=== PATIENT | female | born 1985 | race African-American/Black ===

== ENCOUNTER 2021-03-23 07:56 | Emergency (ER) | payer MEDICAID ==
[~2021-03-23] VITALS: Ht 152.4 cm; Wt 87.0 kg
[2021-03-23 08:59] LABS: BASOPHILS % 0.5 % (0.0-2.0); CHLORIDE 108 mEq/L (98-107); EOSINOPHILS % 0.5 % (0.0-5.0); HEMATOCRIT. 35.5 % (36.0-48.0); HEMOGLOBIN. 12.4 g/dL (12.0-16.0); LYMPHOCYTES % 27.6 % (20.0-50.0); MEAN CORPUSCULAR HEMOGLOBIN 31.7 pg (28.0-32.0); MEAN CORPUSCULAR VOLUME 90.4 fL (81.0-99.0); MEAN PLATELET VOLUME 10.3 fl (7.4-10.4); NEUTROPHILS % 63.4 % (40.0-76.0); PLATELET 170 x1000/uL (130-400); RED BLOOD CELL COUNT 3.93 mill/uL (4.2-5.4); RED CELL DISTRIBUTION WIDTH 13.1 % (11.6-14.6)
[2021-03-23 09:14] LABS: CLARITY URINE CLEAR (CLEAR); COLOR URINE YELLOW (YELLOW); KETONES URINE NEGATIVE (NEGATIVE); LEUKOCYTE ESTERASE URINE NEGATIVE (NEGATIVE); NITRITE URINE NEGATIVE (NEGATIVE); OCCULT BLOOD URINE TRACE (NEGATIVE); PH URINE 5.5 (4.5-8.0); PROTEIN URINE NEGATIVE (NEGATIVE); SPECIFIC GRAVITY URINE 1.018 (1.005-1.030); UROBILINOGEN URINE 0.2 E.U./dL (0.2-1.0)
[2021-03-23 09:46] VITALS: BP 141/69
[2021-03-23] MEDS ORDERED: NITR-87 MT (09:50)
== END 2021-03-23 09:48 | disposition home or self-care (01) ==
LOC: ER 07:56
DX: O13.2 Gestational [pregnancy-induced] hypertension without significant proteinuria, second trimester (principal); O23.90 Unspecified genitourinary tract infection in pregnancy, unspecified trimester; R78.81 Bacteremia; O09.522 Supervision of elderly multigravida, second trimester; Z3A.22 22 weeks gestation of pregnancy
CPT/HCPCS: 36415; 80053; 81003; 85025; 99283

== ENCOUNTER 2021-05-12 17:55 | Inpatient (IN) | payer MEDICAID ==
[~2021-05-12] VITALS: Ht 152.4 cm; Wt 92.1 kg
[~2021-05-12 17:55] MED LIST: LABE200T9 PO; NIFE-33 PO; NITR-87 MT
[2021-05-12] MEDS ORDERED: NALOXONE HCL 0.4 MG/ML 1ML VIAL IM PRN (18:15)
[2021-05-12] MEDS ORDERED: CARBOPROST TROMETHAMINE 250 MCG/ML AMPUL IM PRN (18:15)
[2021-05-12] MEDS ORDERED: METHYLERGONOVINE MALEATE 0.2 MG/ML IM PRN (18:15)
[2021-05-12] MEDS ORDERED: DEXT 5%/LR + PITOCIN 20UNITS/L 1,000 ML IV SCH ×2 (18:15→20:15)
[2021-05-12] MEDS ORDERED: MAGNESIUM 20 G PREMIX (L & D) 500 ML IV SCH ×4 (18:15→23:00)
[2021-05-12] MEDS ORDERED: MISOPROSTOL 100MCG TABLET VG SCH (18:15)
[2021-05-12] MEDS ORDERED: CITRIC ACID/SODIUM CITRATE SOLN 30ML UDC PO NR (18:45)
[2021-05-12] MEDS ORDERED: LACTATED RINGERS 1,000 ML IV SCH (18:45)
[2021-05-12] MEDS ORDERED: MAGNESIUM 4 G PREMIX 100 ML IV NR (18:45)
[2021-05-12 18:54] LABS: BASOPHILS % 0.2 % (0.0-2.0); EOSINOPHILS % 0.2 % (0.0-5.0); HEMATOCRIT. 38.4 % (36.0-48.0); HEMOGLOBIN. 12.7 g/dL (12.0-16.0); LYMPHOCYTES % 19.4 % (20.0-50.0); MEAN CORPUSCULAR VOLUME 90.3 fL (81.0-99.0); MEAN PLATELET VOLUME 10.1 fl (7.4-10.4); MONOCYTES % 6.6 % (2.0-8.0); NEUTROPHILS % 73.6 % (40.0-76.0); PLATELET 173 x1000/uL (130-400); RED BLOOD CELL COUNT 4.25 mill/uL (4.2-5.4); RED CELL DISTRIBUTION WIDTH 13.9 % (11.6-14.6)
[2021-05-12] MEDS ORDERED: LABETALOL HCL 5MG/ML VIAL 20ML IV PRN ×4 (19:00→20:15)
[2021-05-12] MEDS ORDERED: PHENYLEPHRINE HCL 10 MG/ML 1ML (IV VIAL) IV ONE (19:01)
[2021-05-12] MEDS ORDERED: ONDANSETRON HCL 4MG/2ML INJ ONE (19:01)
[2021-05-12] MEDS ORDERED: OXYTOCIN 10 UNITS/ML 1ML ONE (19:01)
[2021-05-12] MEDS ORDERED: CEFAZOLIN SODIUM 1000MG/VIAL ONE (19:01)
[2021-05-12] MEDS ORDERED: EPHEDRINE SULFATE 50MG/ML VIAL ONE (19:01)
[2021-05-12] MEDS ORDERED: MORPHINE SULFATE/PF 1MG/ML 10ML AMP ONE (19:01)
[2021-05-12] MEDS ORDERED: FENTANYL CITRATE/PF 50MCG/ML 2ML VIAL ONE (19:01)
[2021-05-12] MEDS ORDERED: DIPHENHYDRAMINE 50MG/ML VIAL ONE (19:01)
[2021-05-12] MEDS ORDERED: SODIUM CHLORIDE 0.9% 10ML VIAL ONE (19:04)
[2021-05-12 19:05] LABS: INR 0.9; PARTIAL THROMBOPLASTIN TIME 24.7 sec (23.4-31.0); PROTHROMBIN TIME 9.3 sec (9.6-11.0)
[2021-05-12 19:10] LABS: CHLORIDE 107 mEq/L (98-107)
[2021-05-12 19:19] LABS: D-DIMER 2.58 mg/L FEU (<0.50)
[2021-05-12 19:35] LABS: *AMPHETAMINES SCREEN URINE NEGATIVE (NEGATIVE)
[2021-05-12 19:36] LABS: *BARBITURATES SCREEN URINE NEGATIVE (NEGATIVE); *BENZODIAZEPINES SCREEN URINE NEGATIVE (NEGATIVE); *COCAINE SCREEN URINE NEGATIVE (NEGATIVE); METHADONE URINE SCREEN NEGATIVE (NEGATIVE); OPIATES URINE SCREEN NEGATIVE (NEGATIVE); PHENCYCLIDINE URINE SCREEN NEGATIVE (NEGATIVE)
[2021-05-12 19:37] LABS: CANNABINOID URINE SCREEN NEGATIVE (NEGATIVE)
[2021-05-12] MEDS ORDERED: KETOROLAC 60MG/2ML VIAL IM ONE (20:11)
[2021-05-12] MEDS ORDERED: RHO(D) IMMUNE GLOBULIN 300 MCG/SYR IM PRN (20:15)
[2021-05-12] MEDS ORDERED: BISACODYL 10MG SUPP PR PRN (20:15)
[2021-05-12] MEDS ORDERED: HEMORRHOIDAL SUPP PR PRN (20:15)
[2021-05-12] MEDS ORDERED: IBUPROFEN 400MG TABLET PO PRN (20:15)
[2021-05-12] MEDS ORDERED: LANOLIN OINT 7GM TUBE TOP PRN (20:15)
[2021-05-12] MEDS ORDERED: ONDANSETRON HCL 4MG/2ML INJ IV PRN (20:15)
[2021-05-12] MEDS ORDERED: DIPHENHYDRAMINE 25MG CAPSULE PO PRN (20:15)
[2021-05-12] MEDS ORDERED: BUTORPHANOL TARTRATE 2 MG/ML VIAL IV PRN ×2 (21:15→21:30)
[2021-05-12] MEDS ORDERED: NALOXONE HCL 0.4 MG/ML 1ML VIAL IV PRN (21:15)
[2021-05-12] MEDS ORDERED: DIPHENHYDRAMINE 50MG/ML VIAL IV PRN (21:15)
[2021-05-12 23:00] VITALS: BP 138/94
[2021-05-12 23:30] VITALS: BP 153/87
[2021-05-13 03:01] LABS: BASOPHILS % 0.3 % (0.0-2.0); EOSINOPHILS % 0.2 % (0.0-5.0); HEMATOCRIT. 38.4 % (36.0-48.0); HEMOGLOBIN. 13.2 g/dL (12.0-16.0); LYMPHOCYTES % 13.6 % (20.0-50.0); MEAN CORPUSCULAR HEMOGLOBIN 30.8 pg (28.0-32.0); MEAN CORPUSCULAR VOLUME 89.7 fL (81.0-99.0); MEAN PLATELET VOLUME 9.9 fl (7.4-10.4); MONOCYTES % 9.2 % (2.0-8.0); NEUTROPHILS % 76.7 % (40.0-76.0); PLATELET 172 x1000/uL (130-400); RED BLOOD CELL COUNT 4.29 mill/uL (4.2-5.4)
[2021-05-13 04:00] VITALS: BP 162/99
[2021-05-13 04:33] VITALS: BP 158/89
[2021-05-13] MEDS ORDERED: BUTORPHANOL TARTRATE 2 MG/ML VIAL IV PRN (05:00)
[2021-05-13] MEDS: LABETALOL HCL 200MG TABLET PO SCH ×3 (05:18→22:02)
[2021-05-13 08:08] VITALS: BP 175/87
[2021-05-13] MEDS: PRENATAL VIT/FE FUMARATE/FA TABLET PO SCH (08:23)
[2021-05-13] MEDS: FERROUS SULFATE 325MG TABLET PO SCH ×3 (08:23→18:16)
[2021-05-13] MEDS: MAGNESIUM/ALUMINUM HYDROXIDE/SIMETHICONE 30ML UDC PO SCH ×4 (08:24→21:06)
[2021-05-13] MEDS: ACETAMINOPHEN WITH CODEINE 300/30MG TABLET PO PRN ×2 (08:24→22:12)
[2021-05-13] MEDS: SIMETHICONE 80MG TABLET CHEW PO SCH ×4 (08:24→21:07)
[2021-05-13] MEDS ORDERED: NIFEDIPINE XL 30MG TAB PO SCH (09:00)
[2021-05-13] MEDS ORDERED: NITROFURANTOIN 100MG M/M CAPSULE PO SCH (09:00)
[2021-05-13 09:07] LABS: CLARITY URINE CLEAR (CLEAR); COLOR URINE YELLOW (YELLOW); KETONES URINE NEGATIVE (NEGATIVE); LEUKOCYTE ESTERASE URINE NEGATIVE (NEGATIVE); NITRITE URINE NEGATIVE (NEGATIVE); OCCULT BLOOD URINE 3+ (NEGATIVE); PROTEIN URINE 3+ (NEGATIVE); SPECIFIC GRAVITY URINE 1.014 (1.005-1.030); UROBILINOGEN URINE 0.2 E.U./dL (0.2-1.0)
[2021-05-13 09:25] VITALS: BP 171/72
[2021-05-13] MEDS ORDERED: NIFEDIPINE XL 30MG TAB PO NR (09:45)
[2021-05-13 13:33] VITALS: BP 159/73
[2021-05-13 19:30] VITALS: BP 114/56
[2021-05-13] MEDS: DOCUSATE SODIUM 100MG CAPSULE PO SCH (21:06)
[2021-05-14] VITALS (8 sets, daily range): BP systolic 133–139; BP diastolic 56–79
[2021-05-14] MEDS: HYDROCODONE/ACETAMINOPHEN 5/325MG TABLET PO PRN ×2 (00:33→05:48)
[2021-05-14] MEDS: LABETALOL HCL 200MG TABLET PO SCH ×3 (05:58→21:43)
[2021-05-14 07:04] LABS: BASOPHILS % 0.1 % (0.0-2.0); EOSINOPHILS % 0.5 % (0.0-5.0); HEMATOCRIT. 30.7 % (36.0-48.0); HEMOGLOBIN. 10.5 g/dL (12.0-16.0); LYMPHOCYTES % 18.3 % (20.0-50.0); MEAN CORPUSCULAR HEMOGLOBIN 30.9 pg (28.0-32.0); MEAN PLATELET VOLUME 9.7 fl (7.4-10.4); MONOCYTES % 9.6 % (2.0-8.0); NEUTROPHILS % 71.5 % (40.0-76.0); PLATELET 107 x1000/uL (130-400); RED BLOOD CELL COUNT 3.41 mill/uL (4.2-5.4)
[2021-05-14] MEDS: FERROUS SULFATE 325MG TABLET PO SCH ×3 (09:06→17:34)
[2021-05-14] MEDS: PRENATAL VIT/FE FUMARATE/FA TABLET PO SCH (09:06)
[2021-05-14] MEDS: MAGNESIUM/ALUMINUM HYDROXIDE/SIMETHICONE 30ML UDC PO SCH ×4 (09:06→21:43)
[2021-05-14] MEDS: SIMETHICONE 80MG TABLET CHEW PO SCH ×3 (09:07→17:35)
[2021-05-14] MEDS: NIFEDIPINE XL 60MG TAB PO SCH (11:32)
[2021-05-14] MEDS: ACETAMINOPHEN WITH CODEINE 300/30MG TABLET PO PRN (12:28)
[2021-05-14 20:05] LABS: HEPATITIS B SURFACE ANTIGEN NEGATIVE
[2021-05-14] MEDS: DOCUSATE SODIUM 100MG CAPSULE PO SCH (21:43)
[2021-05-15] MEDS: ACETAMINOPHEN WITH CODEINE 300/30MG TABLET PO PRN ×2 (00:56→04:47)
[2021-05-15 04:00] VITALS: BP 113/55
[2021-05-15 06:00] VITALS: BP 136/57
[2021-05-15] MEDS: LABETALOL HCL 200MG TABLET PO SCH (06:06)
[2021-05-15 07:30] VITALS: BP 128/65
[2021-05-15] MEDS: PRENATAL VIT/FE FUMARATE/FA TABLET PO SCH (08:53)
[2021-05-15] MEDS: MAGNESIUM/ALUMINUM HYDROXIDE/SIMETHICONE 30ML UDC PO SCH (08:53)
[2021-05-15] MEDS: FERROUS SULFATE 325MG TABLET PO SCH (08:53)
[2021-05-15] MEDS: NIFEDIPINE XL 60MG TAB PO SCH (08:54)
== END 2021-05-15 12:50 | disposition home or self-care (01) | DRG 540 ==
LOC: 8 EST LDRP 17:55 → OBSVTOIN 17:55 → 8EST 22:55
PROVIDERS: ADMIT Obstetrics & Gynecology; ATTEND Obstetrics & Gynecology
PROC: 10D00Z1 Extraction of Products of Conception, Low, Open Approach (ICD-10-PCS; principal; 2021-05-12)
DX: O13.4 Gestational [pregnancy-induced] hypertension without significant proteinuria, complicating childbirth (principal); O36.5930 Maternal care for other known or suspected poor fetal growth, third trimester, not applicable or unspecified; Z37.0 Single live birth; Z3A.30 30 weeks gestation of pregnancy
CPT/HCPCS: 36415; 80053; 80305; 80359; 81003; 83735; 84550; 85025; 85379; 85384; 86592; 86762; 86850; 86900; 87340; 88307; 99281; J0595; J0690; J1200; J1885; J2274; J2370; J2405; J2590; J3010; J3475; J3490; J7120; A4315